=== PATIENT | female | born 1985 | race Caucasian/White ===

== ENCOUNTER 2018-10-30 23:43 | Emergency (ER) | payer OTHER, MEDICAID ==
[~2018-10-30] VITALS: Ht 170.2 cm; Wt 97.5 kg
[~2018-10-30 23:43] MED LIST: AMOXICILLIN500 M1 PO; AMOXIL 875 MG875 M1 PO; AUGMENTIN 875875 MG; BACTRIM DS TAB1 EACH PO; CARAFATE 1 GM TA1 GM PO; FLEXERIL PO; NAPROSYN500 MG PO; NOHOMEMEDICATIONS; NORCO 5-325 TA1 EACH PO; PENICILLIN VK500 M1 PO; PREDNISONE 20 M20 MG PO; SINUS NASAL SPR30 M1 NS; SUPER B COMPLE1 EAC3; TESSALON200 MG PO; TRINATE TABLET1 TAB PO; ULTRAM 50MG TAB50 MG PO
[2018-10-30 23:49] VITALS: BP 117/50
[2018-10-30] MEDS ORDERED: FLONASE 0.05%50 MCG NASAL (23:54)
[2018-10-30] MEDS ORDERED: ZYRTEC10 M5 PO (23:54)
[2018-10-31] MEDS ORDERED: TRIAMCINOLONE A80 G2 TOP (00:23)
== END 2018-10-31 00:33 | disposition home or self-care (01) ==
LOC: M.ERS 23:43
DX: L25.9 Unspecified contact dermatitis, unspecified cause (principal); F17.210 Nicotine dependence, cigarettes, uncomplicated; Z88.1 Allergy status to other antibiotic agents; Z88.8 Allergy status to other drugs, medicaments and biological substances; Z90.49 Acquired absence of other specified parts of digestive tract

== ENCOUNTER 2018-11-03 18:51 | Emergency (ER) | payer OTHER, MEDICAID ==
[~2018-11-03] VITALS: Ht 170.2 cm; Wt 99.8 kg
[~2018-11-03 18:51] MED LIST changes: +FLONASE 0.05%50 MCG NASAL; +TRIAMCINOLONE A80 G2 TOP; +ZYRTEC10 M5 PO
[2018-11-03] MEDS ORDERED: HYDROXYZINE HCL25 M1 PO (19:41)
[2018-11-03] MEDS ORDERED: AMOXICILLIN875 MG PO (19:41)
[2018-11-03] MEDS ORDERED: PREDNISONE50 MG PO (19:41)
[2018-11-03] MEDS ORDERED: ZYRTEC10 M4 PO (19:41)
[2018-11-03] MEDS ORDERED: AZELASTINE205.5 MCG/ NASAL (19:41)
[2018-11-03] MEDS ORDERED: MEDROLDOSEPACK PO (19:41)
[2018-11-03 19:57] VITALS: BP 113/73
== END 2018-11-03 19:58 | disposition home or self-care (01) ==
LOC: M.ERS 18:51
DX: L50.1 Idiopathic urticaria (principal); R09.81 Nasal congestion; F17.210 Nicotine dependence, cigarettes, uncomplicated; Z88.1 Allergy status to other antibiotic agents; Z90.89 Acquired absence of other organs

== ENCOUNTER 2018-12-05 10:50 | Emergency (ER) | payer OTHER, MEDICAID ==
[~2018-12-05] VITALS: Ht 170.2 cm; Wt 99.8 kg
[~2018-12-05 10:50] MED LIST changes: +AMOXICILLIN875 MG PO; +AZELASTINE205.5 MCG/ NASAL; +HYDROXYZINE HCL25 M1 PO; +MEDROLDOSEPACK PO; +PREDNISONE50 MG PO; +ZYRTEC10 M4 PO
[2018-12-05 11:10] LABS: URINE BILIRUBIN NEGATIVE (Negative); URINE BLOOD NEGATIVE (Negative); URINE CLARITY CLEAR; URINE COLOR YELLOW; URINE GLUCOSE-RANDOM NEGATIVE (Negative); URINE KETONES NEGATIVE (Negative); URINE LEUKOCYTES-REFLEX 1+ (Negative); URINE NITRITE-REFLEX NEGATIVE (Negative); URINE PROTEIN NEGATIVE (Negative); URINE SPECIFIC GRAVITY >= 1.030 (1.005-1.030); URINE UROBILINOGEN 0.2 E.U./dl (0.2-1.0)
[2018-12-05 11:15] LABS: SQUAMOUS >10 Many /LPF (0-3)
[2018-12-05 11:16] LABS: URINE RBC None Seen /HPF (0-2)
[2018-12-05 11:17] LABS: BACTERIA-REFLEX >30 Many /HPF (None Seen); CASTS None Seen /LPF (None Seen); CRYSTALS None Seen /LPF (None Seen); MUCUS >6 Heavy strn/LPF (None Seen)
[2018-12-05 11:21] LABS: ABSOLUTE BASOPHILS 0.1 thou/uL (0.0-0.2); ABSOLUTE EOSINOPHILS 0.2 thou/uL (0.0-0.7); ABSOLUTE LYMPHOCYTES 3.2 thou/uL (0.8-5.3); ABSOLUTE MONOCYTES 0.7 thou/uL (0.0-1.2); ABSOLUTE NEUTROPHILS 6.6 thou/uL (1.6-8.1); BASOPHILS 0.7 %; EOSINOPHILS 1.8 %; HEMATOCRIT 39.4 % (37.0-47.0); HEMOGLOBIN 13.4 gm/dL (12.0-15.0); LYMPHOCYTES 29.9 %; MCHC 34.1 g/dL (28.0-37.0); MCV 93.9 fL (80.0-100.0); MONOCYTES 6.3 %; MPV 7.7 fl. (7.2-11.1); NUCLEATED RBCS 0 /100WBC; PLATELET COUNT* 279 thou/uL (150-400); POLYS 61.3 %; RBC 4.19 mil/uL (4.20-5.00); RDW-CV 12.9 % (10.5-14.5); WBC 10.8 thou/uL (4.0-11.0)
[2018-12-05 11:27] LABS: CALCIUM 8.5 mg/dL (8.5-10.1); CREATININE 0.8 mg/dL (0.6-1.3); POTASSIUM 3.5 mmol/L (3.5-5.1)
[2018-12-05 11:32] LABS: ALBUMIN 3.3 g/dL (3.4-5.0); TOTAL BILIRUBIN 0.2 mg/dL (<0.1-1.0)
[2018-12-05] MEDS ORDERED: ONDANSETRON HCL4 M2 PO (12:26)
[2018-12-05] MEDS ORDERED: KEFLEX500 M1 PO (12:26)
[2018-12-05] MEDS ORDERED: TRINATE TABLET1 EACH PO (12:26)
[2018-12-05 14:54] VITALS: BP 117/63
== END 2018-12-05 14:54 | disposition home or self-care (01) ==
LOC: M.ERS 10:50
PROVIDERS: Nurse Practitioner Family
DX: O23.41 Unspecified infection of urinary tract in pregnancy, first trimester (principal); R11.0 Nausea; Z32.01 Encounter for pregnancy test, result positive; F17.210 Nicotine dependence, cigarettes, uncomplicated; Z88.1 Allergy status to other antibiotic agents; Z88.8 Allergy status to other drugs, medicaments and biological substances; Z90.49 Acquired absence of other specified parts of digestive tract; Z3A.00 Weeks of gestation of pregnancy not specified

== ENCOUNTER 2020-06-26 21:30 | Emergency (ER) | payer OTHER, MEDICAID ==
[~2020-06-26] VITALS: Ht 170.2 cm; Wt 88.5 kg
[~2020-06-26 21:30] MED LIST changes: +KEFLEX500 M1 PO; +ONDANSETRON HCL4 M2 PO; +TRINATE TABLET1 EACH PO
[2020-06-26 22:52] VITALS: BP 125/79
== END 2020-06-26 22:52 | disposition home or self-care (01) ==
LOC: M.ERS 21:30
DX: S93.691A Other sprain of right foot, initial encounter (principal); F17.210 Nicotine dependence, cigarettes, uncomplicated; Z88.1 Allergy status to other antibiotic agents; W10.8XXA Fall (on) (from) other stairs and steps, initial encounter; Y93.89 Activity, other specified; Y92.89 Other specified places as the place of occurrence of the external cause; Y99.8 Other external cause status